=== PATIENT | female | born 1970 | race Hispanic/Latino ===

== ENCOUNTER 2022-08-18 16:10 | Outpatient (CLI) | payer BC | END 2022-08-18 16:11 | disposition home or self-care (01) | LOC: CSHRAD 16:10 | PROVIDERS: ATTEND Nurse Practitioner Adult Health | DX: M25.562 Pain in left knee (principal) ==

== ENCOUNTER 2023-04-15 15:23 | Outpatient (CLI) | payer BC | END 2023-04-15 15:24 | disposition home or self-care (01) | LOC: CSHMAMMO 15:23 | PROVIDERS: ATTEND Psychiatry & Neurology Psychiatry | DX: Z12.31 Encounter for screening mammogram for malignant neoplasm of breast (principal) | CPT/HCPCS: 77063; 77067 ==